=== PATIENT | male | born 1950 | race Hispanic/Latino ===

== ENCOUNTER 2018-03-04 09:32 | Inpatient (IN) | payer OTHER ==
--- NOTE | 2018-03-04 11:48 | PDOC.FPRHP ---
- History of Present Illness Chief Complaint: AMS History of Present Illness: Patient is a 67yo M with PMH of HTN and DM, who presents to us from [facility] for AMS 2/2 hypoglycemia. Initial BS on EMS arrival was 35. Patient also found to be hypertensive with SBP in 200's. 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 On admission, he is AOx3, eating and holding conversation. He reports bilateral shoulder pain that he has had for years, but no CP. He reports he hasn't eaten in 3 days d/t nausea that has been occurring for 6 months. He only eats 1x per day due to this. He also endorses early satiety, bloating, and burning in epigastric area. ED Course: In [place] given octreotide, glucagon, D5W 1/2 NS, po clonidine, IV labetolol 20, cardiene drip No further medications were given in our ED. He was actually taken off of the Cardene drip. - Allergies/Adverse Reactions Allergies Allergy/AdvReac Type Severity Reaction Status Date / Time No Known Allergies Allergy Verified 03/04/18 15:23 - Home Medications Medication Instructions Recorded Confirmed Type Amitriptyline HCl [Elavil] 25 mg PO HS 03/04/18 03/04/18 History Amlodipine [Norvasc] 10 mg PO DAILY 03/04/18 03/04/18 History Atorvastatin Calcium [Lipitor] 40 mg PO DAILY 03/04/18 03/04/18 History Insulin Aspart [NovoLOG FlexPen] 0 unit SC BID-AC 03/04/18 03/04/18 History Insulin NPH Human Isophane 10 unit SC QAM 03/04/18 03/04/18 History [NovoLIN N] Insulin NPH Human Isophane 20 unit SC QPM 03/04/18 03/04/18 History [NovoLIN N] Isoniazid 300 mg PO DAILY 03/04/18 03/04/18 History Lisinopril [Prinivil] 40 mg PO DAILY 03/04/18 03/04/18 History Metoprolol Tartrate [Lopressor] 100 mg PO BID 03/04/18 03/04/18 History Omeprazole 20 mg PO DAILY 03/04/18 03/04/18 History Phenytoin Sodium Extended 100 mg PO HS 03/04/18 03/04/18 History [Dilantin ER] Promethazine HCl 25 mg PO TID 03/04/18 03/04/18 History Rifampin 600 mg PO DAILY 03/04/18 03/04/18 History Venlafaxine HCl [Effexor] 75 mg PO DAILY 03/04/18 03/04/18 History hydrALAZINE HCl [Apresoline] 50 mg PO TID 03/04/18 03/04/18 History - History PMHx: 1. HTN 2. DM2 3. OA 4. Hx of TB per patient, nurse at shelter cannot confirm 5. HLD 6. Diabetic Retinopathy 7. Hypothyroidism PSHx: 1. b/l eye surgery 2. cholecystectomy 3. R knee surgery FHx: Noncontributory Social: Coming from the shelter, is in high security there. Denies tobacco, etoh, and drug use. - Review of Systems General: denies: fever/chills, weight/appetite/sleep changes, night sweats Eyes: denies: eye pain, vision changes ENT: denies: nasal congestion, rhinorrhea Respiratory: reports: other (reports orthopnea). denies: cough, congestion, shortness of breath Cardiovascular: denies: chest pain, palpitation Gastrointestinal: reports: nausea, abdominal pain, other (reports early satiety and bloating). denies: vomiting, diarrhea, constipation Skin: denies: rashes, lesions Musculoskeletal: reports: pain (bilateral shoulder), arthritis/arthralgias. denies: tenderness Neurological: reports: other (tremor worsened from baseline). denies: numbness , syncope Psychological: denies: anxiety, depression - Vital signs 220-240/110-125 until cardine drip started. BP: 149/79 HR: 73 RR: 14 Tmax: 97.9 Pox: 100% on RA Wt: 81.6kg - Physical Exam Constitutional: NAD, awake, alert and oriented, well developed -Constitutional: obese HEENT: normocephalic and atraumatic, EOMI, no scleral icterus, grossly normal hearing Neck: FROM Heart: RRR, normal S1/S2, no murmurs/rubs/gallops, pulses present -Heart: 3+ pitting edema bilateral LE -Lungs: mild rhonchi in the L lung base, occasional inspiratory wheezing, good air movement, no signs of distress Abdomen: soft, bowel sounds present -Abdomen: large scar in RUQ, mild epigastric tenderness Musculoskeletal: normal structure, normal tone Neurological: no focal deficit Skin: no rash/lesions Psychiatric: normal mood and affect, intact recent and remote memory FMR H&P: Results - Labs Result Diagrams: 03/05/18 03:53 03/05/18 03:53 Lab results: WBC: 5.6 HGB 10.0 Crit28.4 MCV 86 Plt 240 NA 138 K 3.7 cl 107 CO2 25 BUN 33 Cr 2.6 glucose 215 Ca 7.6 Albumin 2.0 Bili 0.5 alk phos 98 tot prot 5.3 ALT 17 AST 32 CK: 357 CKMB10 Trop 0.02 BNP 239 Glucose 193, 148 FMR H&P: A/P - Problem List (1) Hypoglycemia Current Visit: Yes Status: Acute Code(s): E16.2 - HYPOGLYCEMIA, UNSPECIFIED (2) Hypertensive urgency Current Visit: Yes Status: Acute Code(s): I16.0 - HYPERTENSIVE URGENCY (3) Diabetes mellitus Current Visit: Yes Status: Acute Code(s): E11.9 - TYPE 2 DIABETES MELLITUS WITHOUT COMPLICATIONS (4) Hypertension Current Visit: Yes Status: Acute Code(s): I10 - ESSENTIAL (PRIMARY) HYPERTENSION (5) Osteoarthritis Current Visit: Yes Status: Acute Code(s): M19.90 - UNSPECIFIED OSTEOARTHRITIS, UNSPECIFIED SITE (6) Hyperlipidemia Current Visit: Yes Status: Acute Code(s): E78.5 - HYPERLIPIDEMIA, UNSPECIFIED (7) SHARON (acute kidney injury) Current Visit: Yes Status: Acute Code(s): N17.9 - ACUTE KIDNEY FAILURE, UNSPECIFIED (8) Elevated brain natriuretic peptide (BNP) level Current Visit: Yes Status: Acute Code(s): R79.89 - OTHER SPECIFIED ABNORMAL FINDINGS OF BLOOD CHEMISTRY (9) Elevated alkaline phosphatase level Current Visit: Yes Status: Acute (10) Hypocalcemia Current Visit: Yes Status: Acute Code(s): E83.51 - HYPOCALCEMIA (11) Hypoalbuminemia due to protein-calorie malnutrition Current Visit: Yes Status: Acute Code(s): E46 - UNSPECIFIED PROTEIN-CALORIE MALNUTRITION (12) Elevated CK Current Visit: Yes Status: Acute (13) Normocytic anemia Current Visit: Yes Status: Acute Code(s): D64.9 - ANEMIA, UNSPECIFIED (14) Hypothyroidism Current Visit: Yes Status: Acute Code(s): E03.9 - HYPOTHYROIDISM, UNSPECIFIED - Plan AMS 2/2 Hypoglycemia, resolved - initially 35, improved to 122 most recently - patient tolerating PO, plan to d/c D51/2 NS - likely cause is lack of PO intake. Patient reports he hasn't eaten in 3 days d/t nausea and abdominal pain Hypertensive Urgency, resolved - likely 2/2 hypoglycemic episode - patient reportedly in 200's systolic, now systolic of 150's - cardene ggt discontinued. plan to resume home medications - continue to monitor and use prn hydralazine Nausea - gastroparesis vs GERD - patient reports bloating and early satiety consistent with gastroparesis and per hx has multiple other secondary problems from uncontrolled DM such as retinopathy and PVD. - will give GI cocktail now and start him on Reglan with meals - Protonix daily - Zofran prn SHARON vs CKD - FeNa studies pending Elevated BNP - significant LE edema on exam and patient endorses orthopnea. 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 Will release back to shelter when stable. FMR H&P: Upper Level - Plan Date/Time: 03/04/18 1145 Nurys Cervantes, have evaluated this patient and agree with findings/plan as outlined by environmental intern resident. Pertinent changes/additions are listed here. 67 yo male with hx of DM, HTN, and HLD and exposure to TB presents after being found down and hypoglycemic to the 30s. He was given glucagon en route and found to be altered in the ER. He was hypertensive at that time and put on a cardine drip before transfer. After transfer her glucose had stabilized and his BP was near normal even after drip stopped. Denied CP. States that he had significant nausea and vomiting for the last 3 days but mild for 6 months. He states he can only eat one meal a day and he feels very bloated. Gen: WD/WN male in no acute distress, eating hungrily. AxO3 HEENT: NC/AT, FABIEN,EOMI, MMM Resp: CTA, normal work of breathing CV: RRR, normal S1, S2, no murmur ABD: mild epigastric pain, patient had large scar above RUQ, Soft nontender, nondistended. No CVA tenderness Extremities: no edema, pulses 2+ Psych: calm, normal affect and mood Neuro: No focal defecits. CN intact, normal strength and sensation Initial glucose 35 1.AMS 2/2 to hypoglycemia- now resolved. Likely related to gastroparesis vs gastroenteritis. Will let him eat and given his home insulin regemin 2.Hypertensive urgency- now resovled, likely 2/2 to the hypoglycemia. Will restart home medications. 3.Gastroparesis- suspected, will order an emptying study to investigate further. Until then will give ppi, reglan, and GI cocktail 4.DM- will check a1c, do accuchecks achs and keep on home medication 5.TB exposure- will continue his isoniazide and order quantafieron gold and CXR. No symptoms 6.HLD- continue statin Attending Addendum - Attending Addendum Date/Time: 03/05/18 0609 I personally evaluated the patient and discussed the management with Dr. Guadalupe I agree with the History, Examination, Assessment and Plan documented above with any addition or exceptions noted below.
[2018-03-04] MEDS ORDERED: Ondansetron HCl/PF 4 MG/2 ML Vial IVP PRN ×2 (12:26→13:30)
[2018-03-04] MEDS ORDERED: Acetaminophen 325 MG TAB PO PRN ×2 (12:26→13:30)
[2018-03-04] MEDS ORDERED: Ondansetron ODT 4 MG TAB SL PRN (12:26)
[2018-03-04] MEDS ORDERED: HumaLOG 300 UNITS/3 ML VIAL SC PRN ×2 (13:30)
[2018-03-04] MEDS ORDERED: Dextrose 5% in Water 1,000 ML IV PRN (13:30)
[2018-03-04] MEDS ORDERED: Docusate 100 MG CAP PO PRN (13:30)
[2018-03-04] MEDS ORDERED: Dextrose 50% Abboject 50 ML SYRINGE SLOW IVP PRN (13:30)
[2018-03-04] MEDS ORDERED: Lidocaine 2% Viscous Solution 10 ML, Aluminum & Magnesium Hydroxide 30 ML SSW SCH (13:45)
[2018-03-04 14:34] LABS: Hemoglobin A1c 5.4 % (4.0-6.0)
[2018-03-04 14:50] LABS: Iron 75 ug/dL (65-175); Iron Binding Capacity, Total 176 mcg/dL (261-462)
[2018-03-04] MEDS ORDERED: hydrALAZINE 25 MG TAB PO SCH (15:00)
[2018-03-04 15:10] LABS: Ferritin 307.39 ng/mL (22-322); Thyroid Stimulating Hormone 1.7503 uIU/mL (0.35-4.94)
[2018-03-04 15:25] VITALS: BMI 32.6
--- NOTE | 2018-03-04 15:38 | RAD ---
TWO VIEWS CHEST: Date: 03-04-18 Provided Clinical History: Possible history of TB. FINDINGS: NO comparisons. Cardiac silhouette is enlarged. There is left basilar consolidation. Associated left pleural effusion . No evidence of pneumothorax. IMPRESSION: 1. Findings suspicious for left basilar pneumonia with associated pleural effusion. 2. Cardiomegaly. POS: DEVONTE
[2018-03-04] MEDS: hydrALAZINE 25 MG TAB PO SCH ×2 (16:00→21:23)
[2018-03-04] MEDS: Metoclopramide 10 MG/10 ML UDCUP PO SCH (16:04)
[2018-03-04 16:26] LABS: Troponin I 0.016 ng/mL (< 0.028)
[2018-03-04] MEDS: Labetalol HCl 100 MG/20 ML VIAL SLOW IVP PRN (17:59)
[2018-03-04 18:51] LABS: Creatinine, Urine 48.09 mg/dL (63-166)
[2018-03-04] MEDS: Amitriptyline HCl 25 MG TAB PO SCH (21:23)
[2018-03-04] MEDS: Metoprolol Tartrate 100 MG TAB PO SCH (21:24)
[2018-03-04] MEDS: NPH, Human Insulin Isophane 300 UNIT/3 ML VIAL SC SCH (21:26)
--- NOTE | 2018-03-04 22:24 | HP ---
DATE OF ADMISSION: 03/04/2018 NOTE: This is an attending history and physical for further specifics, please refer to the internet sales associate's dictated history and physical. CHIEF COMPLAINT: Altered mental status. HISTORY OF PRESENT ILLNESS: A 67-year-old Singaporean speaking only diabetic male, inmate at the [facility] in [place]. He was found to be unresponsive, marked hypoglycemic ep isode with blood sugar in the 30s with an elevated blood pressure. The patient was taken to the [facility]. In review of records reveals he was given glucagon, p.o. clonidine, IV lab etalol and started on a Cardene drip for presumed hypertensive urgency. The patient was initially to be transferred to [place], there were no beds. He was taken to the [facility] in [facility] here he will be admitted for further care and evaluation. PAST MEDICAL HISTORY: Please refer for further details to the internet sales associate's note, he has longstanding hyp ertension and diabetes. Recently, he has had some early satiety consistent with diabetic gastropares is. He states he had not been eating well the last several days. PHYSICAL EXAMINATION: VITAL SIGNS: Blood pressure 149/79, heart rate 73, respirations 14. He is afebrile. GENERAL: Patient is alert, oriented to person, place, and time. HEENT: Atraumatic, normocephalic. Pupils are equal and round. No appreciable papilledema. NECK: Supple. LUNGS: A few scattered rhonchi. HEART: Normal sinus rhythm. ABDOMEN: Soft. Scar of the right upper quadrant. EXTREMITIES: Show no cyanosis, no clubbing, or edema. He is missing his fifth digit of his right mon nd at the [facility]. LABORATORY DATA: Notable for BUN of 33, creatinine 2.6. Brain natriuretic peptide is 239. ASSESSMENT AND PLAN: Altered mental status secondary to hypoglycemia, hypertensive urgency, question able emergency with kidney injury versus chronic kidney disease. 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 He states that he was seen in [place] and is inferring that he has no active disease. Diabetic gastroparesis: He will be start ing on motility agent as Reglan and recommend upper GI with small bowel follow through. The patient has been taken off the Cardene drip and otherwise his home medicines will be restarted as well as ser ial blood sugar monitoring and further evaluation of extent of renal injury.
[2018-03-04] MEDS: hydrALAZINE 20 MG/ML VIAL SLOW IVP PRN (23:53)
[2018-03-05 04:33] LABS: #Eosinphils 0.1 thou/uL (0.0-0.7); #Lymphocytes 0.5 thou/uL (1.20-3.40); #Monocytes 0.5 thou/uL (0.11-0.59); #Neutrophils 2.8 thou/uL (1.40-6.50); %Basophils 0.1 % (0.0-1.0); %Eosinophils 2.1 % (0.0-10.0); %Lymphocytes 12.4 % (21.0-51.0); %Monocytes 12.4 % (0.0-10.0); Hemoglobin 9.1 g/dL (14.0-18.0); Mean Corpuscular Hemoglobin 32.1 pg (27.0-31.0); Mean Corpuscular Volume 89.1 fl (80.0-94.0); Mean Platelet Volume 6.5 fL (7.4-10.4); Platelet Count 241 thou/uL (130-400); Red Blood Cell (RBC) Count 2.83 mill/uL (4.70-6.10); White Blood Cell (WBC) Count 3.8 thou/uL (4.8-10.8)
[2018-03-05 05:06] LABS: ALT (SGPT) 18 U/L (8-55); AST (SGOT) 38 U/L (5-34); Albumin 2.1 g/dL (3.4-4.8); Alkaline Phosphatase 104 U/L (40-150); Anion Gap 10 mmol/L (10-20); BUN (Urea Nitrogen) 35 mg/dL (8.4-25.7); Bilirubin, Total 0.3 mg/dL (0.2-1.2); Calc. Creatinine Clearance 28 mL/min (70-130); Calcium 7.4 mg/dL (7.8-10.44); Carbon Dioxide 24 mmol/L (23-31); Chloride 109 mmol/L (98-107); Estimated GFR-MDRD 19; Globulin 2.6 g/dL (2.4-3.5); Glucose 92 mg/dL (80-115); Protein, Total 4.7 g/dL (5.8-8.1); Sodium 139 mmol/L (136-145)
[2018-03-05 06:46] LABS: Glucose Accucheck Confirmation 101 mg/dl (80-115)
--- NOTE | 2018-03-05 06:53 | PDOC.FM ---
- Subjective Subjective: Pt feels much better. C/o of back pain form OA. Did eat full meal for breakfast. Denies being on TB treatment. - Objective Vital Signs & Weight: Vital Signs (12 hours) Temp Pulse Resp BP BP Pulse Ox 03/05/18 05:15 98.6 F 82 16 168/83 H 92 L 03/05/18 02:16 165/86 H 03/04/18 23:54 98.8 F 84 176/96 H 95 03/04/18 23:53 84 03/04/18 21:23 83 03/04/18 21:00 99.3 F 83 175/90 H 95 03/04/18 20:00 99.3 F 83 20 95 03/04/18 19:00 173/88 H Weight Weight 91.7 kg Result Diagrams: 03/05/18 03:53 03/05/18 03:53 <Ivan Wong - Last Filed: 03/05/18 09:18> - Objective Vital Signs & Weight: Vital Signs (12 hours) Temp Pulse Resp BP BP BP Pulse Ox 03/05/18 11:00 165/95 H 03/05/18 09:06 83 196/96 H 03/05/18 09:05 196/96 H 03/05/18 09:04 83 196/96 H 03/05/18 09:03 83 196/96 H 03/05/18 08:00 97.4 F L 83 20 94 L 03/05/18 07:11 97.4 F L 83 20 196/96 H 94 L 03/05/18 05:15 98.6 F 82 16 168/83 H 92 L 03/05/18 02:16 165/86 H 03/04/18 23:54 98.8 F 84 176/96 H 95 03/04/18 23:53 84 Weight Weight 91.7 kg Result Diagrams: 03/05/18 03:53 03/05/18 03:53 <Allison Arroyo - Last Filed: 03/05/18 11:36> Phys Exam - Physical Examination HEENT: PERRLA, moist MMs Neck: no nodes, no JVD, supple Respiratory: no wheezing, no rales, no rhonchi Cardiovascular: RRR, no significant murmur, no rub Gastrointestinal: soft, non-tender, no distention Musculoskeletal: pulses present, edema present Neurological: non-focal, normal sensation, moves all 4 limbs Psychiatric: normal affect, A&O x 3 Skin: no rash, normal turgor, cap refill <2 seconds <Ivan Wong - Last Filed: 03/05/18 09:18> Dx/Plan (1) SHARON (acute kidney injury) Code(s): N17.9 - ACUTE KIDNEY FAILURE, UNSPECIFIED Status: Acute (2) Diabetes mellitus Code(s): E11.9 - TYPE 2 DIABETES MELLITUS WITHOUT COMPLICATIONS Status: Acute (3) Hypertensive urgency Code(s): I16.0 - HYPERTENSIVE URGENCY Status: Acute (4) Hypoglycemia Code(s): E16.2 - HYPOGLYCEMIA, UNSPECIFIED Status: Acute (5) Normocytic anemia Code(s): D64.9 - ANEMIA, UNSPECIFIED Status: Acute (6) Osteoarthritis Code(s): M19.90 - UNSPECIFIED OSTEOARTHRITIS, UNSPECIFIED SITE Status: Acute - Plan Plan: 1) Hypoglycemia - Resolved, BG in 200's now. 2) Hypertensive Urgency - Off Cardene, BPs elevated still 160's SBP. - Will adjust medications as needed 3) SHARON cs CKD - Cr elevated at 3.1 and GFR decreased. Conitnue IVF and continue to monitor 4) Diabetic Gastroparesis - On Reglan, SBFT pending - Causing Nausea, but Reglan is improving symptoms. 5) Hx/of latent TB - On Rifampin and Isonaizid - Pt states he does not have active disease - Quant gold pending 6) Elevated BNP - ECHO pending 7) Hypocalcemia - Corrects to value WNL. hypoalbuminemia 2/2 chronically poor diet. - Decreased PTH noted. 8) DVT ppx - Lovenox <Ivan Wong - Last Filed: 03/05/18 09:18> Attending Addendum - Attending Addendum Date/Time: 03/05/18 1133 I personally evaluated the patient and discussed the management with Dr. Wong on 03/05/18. I agree with the History, Examination, Assessment and Plan documented above with any addition or exceptions noted below. Patient with normal corrected calcium, but markedly elevated PTH - will check vit D, Mag, phos. Marked hypoalbuminemia without weight loss, will check prealbumin to rule out malnutrition, 24 hour urine to evaluate for nephrotic syndomre (in setting of pitting peripheral edema and CDK stage 4). Evaluate early satiety further with abd US to rule out pancreatic or gallbladder pathology. Quant Blu pending. [facility] further elucidate whether he was treated prior or if he was in the midst of treatment on admission. <Allison Arroyo - Last Filed: 03/05/18 11:36>
[2018-03-05] MEDS ORDERED: Enoxaparin Sodium 40 MG/0.4 ML SYRINGE SC SCH (09:00)
[2018-03-05] MEDS: Metoclopramide 10 MG/10 ML UDCUP PO SCH ×3 (09:02→16:31)
[2018-03-05] MEDS: Atorvastatin Calcium 40 MG TAB PO SCH (09:03)
[2018-03-05] MEDS: Calcium Carbonate 500 MG ChewTAB PO SCH (09:03)
[2018-03-05] MEDS: Amlodipine 10 MG TAB PO SCH (09:03)
[2018-03-05] MEDS: hydrALAZINE 25 MG TAB PO SCH ×3 (09:04→22:14)
[2018-03-05] MEDS: Isoniazid 100 MG TAB PO SCH (09:04)
[2018-03-05] MEDS: Lisinopril 20 MG TAB PO SCH (09:05)
[2018-03-05] MEDS: Metoprolol Tartrate 100 MG TAB PO SCH ×2 (09:05→22:15)
[2018-03-05] MEDS: NPH, Human Insulin Isophane 300 UNIT/3 ML VIAL SC SCH ×2 (09:05→22:15)
[2018-03-05] MEDS: Rifampin 300 MG CAP PO SCH (09:06)
[2018-03-05] MEDS: Venlafaxine HCl 37.5 MG TAB PO SCH (09:06)
[2018-03-05] MEDS: Labetalol HCl 100 MG/20 ML VIAL SLOW IVP PRN (09:06)
[2018-03-05] MEDS: Ondansetron ODT 4 MG TAB PO PRN (12:14)
[2018-03-05 12:23] LABS: Magnesium 1.8 mg/dL (1.6-2.6); Phosphorus 5.4 mg/dL (2.3-4.7)
[2018-03-05 12:50] LABS: HBSAg Index 0.26 S/CO (0-0.99); Hep B Surf Ag Non-Reactive S/CO (NonReactive); Hep C IgG Ab Non-Reactive (NonReactive); Hep C Index 0.11 S/CO (0-0.79)
[2018-03-05 13:43] LABS: HBSAB Concentration 21.97 mIU/mL; Hep B Surf AB Reactive (NonReactive)
[2018-03-05 13:44] LABS: Hep B Core Total Ab Reactive (NonReactive); Hep B Core Total Index 8.79 S/CO (0-0.79)
[2018-03-05] MEDS ORDERED: Acetaminophen 325 MG TAB PO PRN (21:08)
[2018-03-05] MEDS: Amitriptyline HCl 25 MG TAB PO SCH (22:15)
[2018-03-06 06:44] LABS: Hemoglobin 9.1 g/dL (14.0-18.0); Mean Corpuscular HGB CONC 34.7 g/dL (32.0-36.0); Mean Corpuscular Hemoglobin 31.5 pg (27.0-31.0); Mean Corpuscular Volume 90.9 fl (80.0-94.0); Mean Platelet Volume 7.4 fL (7.4-10.4); Platelet Count 210 thou/uL (130-400); RBC Distribution Width 12.9 % (11.5-14.5); Red Blood Cell (RBC) Count 2.88 mill/uL (4.70-6.10); White Blood Cell (WBC) Count 3.4 thou/uL (4.8-10.8)
[2018-03-06 06:56] LABS: Anion Gap 12 mmol/L (10-20); BUN (Urea Nitrogen) 41 mg/dL (8.4-25.7); Calc. Creatinine Clearance 27 mL/min (70-130); Calcium 7.6 mg/dL (7.8-10.44); Carbon Dioxide 19 mmol/L (23-31); Chloride 109 mmol/L (98-107); Estimated GFR-MDRD 18; Glucose 115 mg/dL (80-115); Potassium 4.1 mmol/L (3.5-5.1); Sodium 136 mmol/L (136-145)
--- NOTE | 2018-03-06 08:22 | PDOC.FM ---
- Subjective Subjective: Pt states he suffered with nausea overnight, but was relieved with medication. Collecting urine 24hr. Ate breakfast - Objective Vital Signs & Weight: Vital Signs (12 hours) Temp Pulse Resp BP BP Pulse Ox 03/06/18 07:19 97.8 F 68 18 148/70 H 94 L 03/06/18 04:51 97.9 F 69 20 109/68 93 L 03/06/18 00:05 97.7 F 60 20 109/68 93 L 03/05/18 22:14 76 03/05/18 20:31 98.4 F 76 20 104/64 97 Weight Weight 91.7 kg Result Diagrams: 03/06/18 05:29 03/06/18 05:29 Additional Labs: Laboratory Tests 03/05/18 03/05/18 03/05/18 11:51 11:51 11:51 Creatinine Calcium Phosphorus 5.4 H Magnesium 1.8 Prealbumin 17.0 25-OH Vitamin D Total Hep Bs Antigen Non-Reactive Hep Bs Antibody Reactive Hep B Core Total Ab Reactive H Hepatitis C Antibody Non-Reactive 03/05/18 03/06/18 11:51 05:29 Creatinine 3.35 H Calcium 7.6 L Phosphorus Magnesium Prealbumin 25-OH Vitamin D Total Less than 3.4 L Hep Bs Antigen Hep Bs Antibody Hep B Core Total Ab Hepatitis C Antibody <Ivan Wong - Last Filed: 03/06/18 08:31> - Objective Vital Signs & Weight: Vital Signs (12 hours) Temp Pulse Resp BP BP Pulse Ox 03/07/18 04:00 97.7 F 66 20 148/78 H 92 L 03/07/18 00:00 97.4 F L 63 18 150/85 H 92 L 03/06/18 21:36 69 163/84 H 03/06/18 20:00 97.5 F L 69 18 163/84 H 96 Weight Weight 91.7 kg I&O: 03/06/18 03/07/18 03/08/18 06:59 06:59 06:59 Intake Total 1520 Output Total 400 Balance 1120 Result Diagrams: 03/07/18 05:34 03/07/18 05:34 <Allison Arroyo - Last Filed: 03/07/18 07:26> Phys Exam - Physical Examination Constitutional: NAD HEENT: PERRLA, moist MMs, sclera anicteric, oral pharynx no lesions Neck: no nodes, no JVD Respiratory: no wheezing, no rales, no rhonchi Cardiovascular: RRR, no significant murmur, no rub Gastrointestinal: soft, non-tender, no distention Musculoskeletal: pulses present, edema present 1+ pitting LE Neurological: non-focal, normal sensation Psychiatric: normal affect, A&O x 3 Skin: no rash, normal turgor <Ivan Wong - Last Filed: 03/06/18 08:31> Dx/Plan (1) SHARON (acute kidney injury) Code(s): N17.9 - ACUTE KIDNEY FAILURE, UNSPECIFIED Status: Acute (2) Diabetes mellitus Code(s): E11.9 - TYPE 2 DIABETES MELLITUS WITHOUT COMPLICATIONS Status: Acute (3) Hypertensive urgency Code(s): I16.0 - HYPERTENSIVE URGENCY Status: Acute (4) Hypoglycemia Code(s): E16.2 - HYPOGLYCEMIA, UNSPECIFIED Status: Acute (5) Normocytic anemia Code(s): D64.9 - ANEMIA, UNSPECIFIED Status: Acute (6) Osteoarthritis Code(s): M19.90 - UNSPECIFIED OSTEOARTHRITIS, UNSPECIFIED SITE Status: Acute - Plan Plan: 1) Hypoglycemia - Resolved, BG controlled. 2) Hypertensive Urgency - BP's much more controlled on home medications. max 148/70 - Will adjust medications as needed 3) SHARON cs CKD - Cr elevated at 3.1-->3.35 and GFR decreased. - 24hr UPro pending. Hypoalbuminemia suggestive of renal loss. 4) Hx/o Gastroparesis - On Reglan, Abdominal US taken/read pending - Continued Nausea, but Reglan is improving symptoms. 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 - Decreased PTH noted with low Vitamid D level. Will supplement/ 8) Hyperphosphatemia - [place] 2/2 renal function. Continue to monitor 9) DVT ppx - Lovenox <Ivan Wong - Last Filed: 03/06/18 08:31> Attending Addendum - Attending Addendum I personally evaluated the patient and discussed the management with Dr. Wong on 03/06/18. I agree with the History, Examination, Assessment and Plan documented above with any addition or exceptions noted below. Abd US results pending. Elevated PTH likely caused by severe vit D deficiency, will replete. Renal function not improved, continue 24 hr urine workup for nephrotic syndrome and consult nephrology. BPs improved. <Allison Arroyo - Last Filed: 03/07/18 07:26>
[2018-03-06] MEDS: Metoclopramide 10 MG/10 ML UDCUP PO SCH ×3 (08:54→15:55)
[2018-03-06] MEDS: Calcium Carbonate 500 MG ChewTAB PO SCH (08:55)
[2018-03-06] MEDS: Amlodipine 10 MG TAB PO SCH (08:55)
[2018-03-06] MEDS: Atorvastatin Calcium 40 MG TAB PO SCH (08:55)
[2018-03-06] MEDS: Enoxaparin Sodium 30 MG/0.3 ML SYRINGE SC SCH (08:56)
[2018-03-06] MEDS: Lisinopril 20 MG TAB PO SCH (08:56)
[2018-03-06] MEDS: hydrALAZINE 25 MG TAB PO SCH ×3 (08:56→21:36)
[2018-03-06] MEDS: Isoniazid 100 MG TAB PO SCH (08:56)
[2018-03-06] MEDS: NPH, Human Insulin Isophane 300 UNIT/3 ML VIAL SC SCH ×2 (08:57→21:38)
[2018-03-06] MEDS: Metoprolol Tartrate 100 MG TAB PO SCH ×2 (08:57→21:36)
[2018-03-06] MEDS: Rifampin 300 MG CAP PO SCH (08:58)
[2018-03-06] MEDS: Venlafaxine HCl 37.5 MG TAB PO SCH (08:58)
--- NOTE | 2018-03-06 09:11 | ULT ---
ABDOMEN ULTRASOUND COMPLETE: Date: 03/06/18 HISTORY: 67-year-old male with possible gastroparesis. Status post cholecystectomy. Patient gives a history of hypoglycemia and altered mental status. FINDINGS: Bilateral pleural effusions. No ductal dilatation. No focal liver masses. The visualized pancreas, IV C, aorta, and spleen are unremarkable. No evidence for renal hydronephrosis. IMPRESSION: Status post cholecystectomy. Bilateral pleural effusions. No ductal dilatation. Otherwise unremarkabl e abdominal ultrasound. POS: STEPHANIE
[2018-03-06] MEDS ORDERED: Cholecalciferol (Vitamin D3) 400 UNIT/ML DROPS PO SCH (09:15)
[2018-03-06 09:34] LABS: Band 6 % (5-11); Lymphocytes 31 % (21-51); MDiff Complete? YES; Monocytes 10 % (0-10); Neutrophil 53 % (42-75); RBC Morphology Normal
[2018-03-06] MEDS: Cholecalciferol (Vitamin D3) 400 UNITS TAB PO SCH ×2 (09:56→21:37)
[2018-03-06 16:16] LABS: Folate,Hemolysate 363.3 ng/mL (Not Estab.); Hematocrit 26.2 % (37.5-51.0); RBC Folate Test Component 1387 ng/mL (>498)
[2018-03-06] MEDS: Amitriptyline HCl 25 MG TAB PO SCH (21:36)
[2018-03-06 22:25] LABS: Collection Duration 24 hrs; Urine Total Volume 1150 mL (250-2400)
[2018-03-07 00:26] LABS: Protein - 24 Hr 10063 mg/24 hr (Less than 300); Protein, Urine 875 mg/dL (1-14)
[2018-03-07 06:01] LABS: #Eosinphils 0.1 thou/uL (0.0-0.7); #Lymphocytes 0.6 thou/uL (1.20-3.40); #Monocytes 0.3 thou/uL (0.11-0.59); #Neutrophils 2.8 thou/uL (1.40-6.50); %Basophils 0.1 % (0.0-1.0); %Eosinophils 2.4 % (0.0-10.0); %Lymphocytes 14.5 % (21.0-51.0); %Monocytes 8.2 % (0.0-10.0); %Neutrophils 74.8 % (42.0-75.0); Hemoglobin 8.8 g/dL (14.0-18.0); Mean Corpuscular HGB CONC 33.6 g/dL (32.0-36.0); Mean Corpuscular Hemoglobin 30.5 pg (27.0-31.0); Mean Corpuscular Volume 90.9 fl (80.0-94.0); Mean Platelet Volume 6.6 fL (7.4-10.4); Platelet Count 224 thou/uL (130-400); RBC Distribution Width 12.8 % (11.5-14.5); Red Blood Cell (RBC) Count 2.88 mill/uL (4.70-6.10); White Blood Cell (WBC) Count 3.8 thou/uL (4.8-10.8)
[2018-03-07 06:20] LABS: Anion Gap 11 mmol/L (10-20); BUN (Urea Nitrogen) 37 mg/dL (8.4-25.7); Calc. Creatinine Clearance 27 mL/min (70-130); Calcium 7.3 mg/dL (7.8-10.44); Carbon Dioxide 23 mmol/L (23-31); Chloride 106 mmol/L (98-107); Estimated GFR-MDRD 19; Glucose 137 mg/dL (80-115); Potassium 4.1 mmol/L (3.5-5.1); Sodium 136 mmol/L (136-145)
[2018-03-07] MEDS ORDERED: NPH, Human Insulin Isophane 300 UNIT/3 ML VIAL SC SCH (08:03)
[2018-03-07] MEDS: hydrALAZINE 25 MG TAB PO SCH ×3 (08:07→20:13)
[2018-03-07] MEDS: Atorvastatin Calcium 40 MG TAB PO SCH (08:08)
[2018-03-07] MEDS: Cholecalciferol (Vitamin D3) 400 UNITS TAB PO SCH ×2 (08:08→20:12)
[2018-03-07] MEDS: Lisinopril 20 MG TAB PO SCH (08:08)
[2018-03-07] MEDS: Venlafaxine HCl 37.5 MG TAB PO SCH (08:08)
[2018-03-07] MEDS: Rifampin 300 MG CAP PO SCH (08:08)
[2018-03-07] MEDS: Isoniazid 100 MG TAB PO SCH (08:08)
[2018-03-07] MEDS: Amlodipine 10 MG TAB PO SCH (08:08)
--- NOTE | 2018-03-07 08:08 | PDOC.FM ---
- Subjective Subjective: Pt reports minimal nausea. Did have hypoglycemia overnight at 52 then 25. resolved with D50. Feels fine now. Urinating normally. Noted nephrotic after Uprotein. - Objective Vital Signs & Weight: Vital Signs (12 hours) Temp Pulse Resp BP BP Pulse Ox 03/07/18 04:00 97.7 F 66 20 148/78 H 92 L 03/07/18 00:00 97.4 F L 63 18 150/85 H 92 L 03/06/18 21:36 69 163/84 H Weight Weight 91.7 kg I&O: 03/06/18 03/07/18 03/08/18 06:59 06:59 06:59 Intake Total 1520 Output Total 400 Balance 1120 Result Diagrams: 03/07/18 05:34 03/07/18 05:34 <Ivan Wong - Last Filed: 03/07/18 08:06> - Objective Vital Signs & Weight: Vital Signs (12 hours) Temp Pulse Resp BP BP Pulse Ox 03/07/18 08:08 66 163/84 H 03/07/18 08:07 66 03/07/18 04:00 97.7 F 66 20 148/78 H 92 L 03/07/18 00:00 97.4 F L 63 18 150/85 H 92 L Weight Weight 91.7 kg I&O: 03/06/18 03/07/18 03/08/18 06:59 06:59 06:59 Intake Total 1520 360 Output Total 400 Balance 1120 360 Result Diagrams: 03/07/18 05:34 03/07/18 05:34 <Allison Arroyo - Last Filed: 03/07/18 10:20> Phys Exam - Physical Examination Constitutional: NAD HEENT: PERRLA, moist MMs, sclera anicteric Neck: no nodes, no JVD, supple Respiratory: no wheezing, no rales, no rhonchi Cardiovascular: RRR, no significant murmur, no rub Gastrointestinal: soft, non-tender, no distention Musculoskeletal: no edema, pulses present, edema present 1+ pitting b/l Neurological: non-focal, normal sensation Psychiatric: normal affect, A&O x 3 Skin: no rash, normal turgor <Ivan Wong - Last Filed: 03/07/18 08:06> Dx/Plan (1) SHARON (acute kidney injury) Code(s): N17.9 - ACUTE KIDNEY FAILURE, UNSPECIFIED Status: Acute (2) Diabetes mellitus Code(s): E11.9 - TYPE 2 DIABETES MELLITUS WITHOUT COMPLICATIONS Status: Acute (3) Hypertensive urgency Code(s): I16.0 - HYPERTENSIVE URGENCY Status: Acute (4) Hypoglycemia Code(s): E16.2 - HYPOGLYCEMIA, UNSPECIFIED Status: Acute (5) Normocytic anemia Code(s): D64.9 - ANEMIA, UNSPECIFIED Status: Acute (6) Osteoarthritis Code(s): M19.90 - UNSPECIFIED OSTEOARTHRITIS, UNSPECIFIED SITE Status: Acute (7) Nephrotic syndrome Code(s): N04.9 - NEPHROTIC SYNDROME WITH UNSPECIFIED MORPHOLOGIC CHANGES Status: Acute - Plan Plan: 1) Hypoglycemia - 2 episodes overnight. Decreased night NPH from 20 to 10. Continue to monitor. 2) Hypertensive Urgency - BP's much more controlled on home medications now. - Will adjust medications as needed 3) SHARON cs CKD - Cr elevated at 3.1-->3.35--?3.28 and GFR decreased. Not improving - 24hr UPro pending shows elevated protein. Hypoalbuminemia suggestive of renal loss. - I have attempted to obtain medical records from [facility], but have been unsuccessful 4) Nephrotic Syndrome - Will consult nephrology and follow recs - 24 hr Upro shows elevated protein 5) Hx/o Gastroparesis - On Reglan, Abdominal US taken/read pending - Continued Nausea, but Reglan is improving symptoms. 6) Hx/of latent TB - On Rifampin and Isonaizid treatment currently and has been for several months - Pt states he does not have active disease - Quant gold pending 7) Elevated BNP - ECHO shows mild TR and mild pericardial effusion. He does have a pos fluid balance 2/2 hypoalbuminemia 8) Vitamin D deficiency - Ca level corrects to value WNL. - Supplementing Vitamid D level daily 9) Hyperphosphatemia - [place] 2/2 renal function. Continue to monitor 10) DVT ppx - Lovenox <Ivan Wong - Last Filed: 03/07/18 08:06> Attending Addendum - Attending Addendum Date/Time: 03/07/18 1018 I personally evaluated the patient and discussed the management with Dr. Wong on 03/07/18. I agree with the History, Examination, Assessment and Plan documented above with any addition or exceptions noted below. Patient with nephrotic syndrome of unknown cause and duration. Seen with Dr. Polanco at bedside. Has bilateral peripheral edema with bilateral pleural effusions and pericardial effusion likely related to decreased oncotic pressures from hypoalbuminemia. Confirmatory tests for Hep C and Hep B ordered. Will check HIV. Attempted to get information from [facility], has not been faxed in yet. Will attempt to diurese patient per Dr. Polanco as well as expand workup per his recommendations. May consider transfer to [facility] if possible. <Allison Arroyo - Last Filed: 03/07/18 10:20>
[2018-03-07] MEDS: Metoclopramide 10 MG/10 ML UDCUP PO SCH ×3 (08:09→17:07)
[2018-03-07] MEDS: Calcium Carbonate 500 MG ChewTAB PO SCH (08:09)
[2018-03-07] MEDS: Enoxaparin Sodium 30 MG/0.3 ML SYRINGE SC SCH (08:09)
[2018-03-07] MEDS: Metoprolol Tartrate 100 MG TAB PO SCH ×2 (08:31→20:13)
[2018-03-07] MEDS ORDERED: Furosemide 40 MG/4 ML VIAL SLOW IVP SCH (17:00)
[2018-03-07] MEDS ORDERED: Epoetin (ESRD) 20,000 UNITS/ML SC SCH (18:30)
[2018-03-07] MEDS: Amitriptyline HCl 25 MG TAB PO SCH (20:12)
--- NOTE | 2018-03-08 02:17 | CON ---
DATE OF CONSULTATION: 03/07/2018 CONSULTING PHYSICIAN: Collin Faust M.D. REQUESTING PHYSICIAN: Dr. Desai with [facility]. REASON FOR CONSULTATION: Advanced chronic kidney disease with nephrotic range proteinuria. IMPRESSION: 1. Nephrotic syndrome. This is likely in the context of diabetic nephropathy. However, other poten tial etiologies include hepatitis C-induced nephropathy in the context of cryoglobulin nephropathy. 2. Anemia, likely anemia of chronic kidney disease. 3. Hypertensive urgency, improved status post treatment with medications. PLAN: 1. The patient to require some diuresis with very close attention to the renal function. If the cre atinine begins to rise exponentially, we will recommend holding angiotensin converting enzyme inhibit or as patient undergoes diuresis. 2. Renally dose all medications per low GFR. 3. Erythropoiesis stimulating agent to address the anemia of chronic kidney disease. 4. Further management to be dependent on the clinical course. There is no indication at this point for renal replacement therapy. HISTORY OF PRESENT ILLNESS: That of a 67-year-old gentleman who was brought in with altered mental s tatus. The patient is an inmate at [facility] [employer] in [place]. Mental statu s change believed more or less due to hypoglycemia. However, on presentation, the patient noted to b e severely hypertensive as well as evidence of a decreased renal function with renal function being a t the level of CKD stage 4. Further evaluation did reveal 15 grams of protein in 24 hours with low a lbumin, as well as peripheral edema, raising the specter of possible nephrotic syndrome. As a result of these findings, decision has been taken to involve Renal in the management of this case. PAST MEDICAL HISTORY: Significant for diabetes, hypertension, chronic kidney disease, and hepatitis C. MEDICATIONS: Reviewed and as documented on [employer]. ALLERGIES: No known drug allergy. FAMILY HISTORY: No family history of kidney disease. SOCIAL HISTORY: The patient is incarcerated. REVIEW OF SYSTEMS: As documented in the body of the history. All the other systems were reviewed an d found not to be significantly related to presenting illness. PHYSICAL EXAMINATION: GENERAL: The patient was found not to be in any obvious distress noted with the following vital sign s. VITAL SIGNS: Afebrile, temperature 97.4, pulse 56, blood pressure 132/84, respiratory rate 16, O2 sa t 97%. HEENT: Unremarkable. Moist oral mucosa. Neck was supple, no conjunctival injection or icterus. CARDIOVASCULAR SYSTEM: First and second heart sounds were heard. RESPIRATORY SYSTEM: Clear to auscultation. DIGESTIVE SYSTEM: Revealed a benign abdomen with positive bowel sounds. EXTREMITIES: Showed some peripheral edema. NEUROLOGIC: Alert, oriented. No lateralizing signs. LYMPHATICS: No peripheral lymphadenopathy. SUMMARY: A 67-year-old gentleman with advanced chronic kidney disease in the context of nephrotic sy ndrome, possibly diabetic nephropathy. Thank you for this consultation. We will follow with you.
[2018-03-08] MEDS: hydrALAZINE 20 MG/ML VIAL SLOW IVP PRN ×2 (04:27→16:58)
[2018-03-08 04:33] LABS: #Eosinphils 0.2 thou/uL (0.0-0.7); #Lymphocytes 0.6 thou/uL (1.20-3.40); #Monocytes 0.5 thou/uL (0.11-0.59); #Neutrophils 1.9 thou/uL (1.40-6.50); %Basophils 0.5 % (0.0-1.0); %Eosinophils 5.4 % (0.0-10.0); %Lymphocytes 19.6 % (21.0-51.0); %Monocytes 14.7 % (0.0-10.0); %Neutrophils 59.9 % (42.0-75.0); Hemoglobin 9.4 g/dL (14.0-18.0); Mean Corpuscular HGB CONC 34.1 g/dL (32.0-36.0); Mean Corpuscular Hemoglobin 30.7 pg (27.0-31.0); Mean Platelet Volume 6.6 fL (7.4-10.4); Platelet Count 228 thou/uL (130-400); RBC Distribution Width 12.5 % (11.5-14.5); Red Blood Cell (RBC) Count 3.04 mill/uL (4.70-6.10); White Blood Cell (WBC) Count 3.2 thou/uL (4.8-10.8)
[2018-03-08 05:02] LABS: Anion Gap 9 mmol/L (10-20); BUN (Urea Nitrogen) 37 mg/dL (8.4-25.7); Calc. Creatinine Clearance 28 mL/min (70-130); Calcium 7.4 mg/dL (7.8-10.44); Carbon Dioxide 25 mmol/L (23-31); Chloride 107 mmol/L (98-107); Estimated GFR-MDRD 19; Glucose 155 mg/dL (80-115); Potassium 3.9 mmol/L (3.5-5.1); Sodium 137 mmol/L (136-145)
[2018-03-08] MEDS: Furosemide 40 MG/4 ML VIAL SLOW IVP SCH ×2 (06:06→14:44)
--- NOTE | 2018-03-08 06:49 | PDOC.FM ---
- Subjective Subjective: Records received from [facility]. Does have some CKD and worsening renal function in the past 3 months. was 1.81 in Dec, 2.23 in January, and 2.43 in early February. Denies complaints today. - Objective Vital Signs & Weight: Vital Signs (12 hours) Temp Pulse Resp BP BP BP Pulse Ox 03/08/18 05:50 177/82 H 03/08/18 04:27 72 03/08/18 04:00 97.3 F L 72 18 194/102 H 94 L 03/07/18 20:15 97.5 F L 75 16 93 L 03/07/18 20:13 75 158/80 H 03/07/18 19:00 97.5 F L 75 16 158/80 H 93 L Weight Weight 91.7 kg I&O: 03/06/18 03/07/18 03/08/18 06:59 06:59 06:59 Intake Total 1520 1260 Output Total 400 850 Balance 1120 410 Result Diagrams: 03/08/18 04:15 03/08/18 04:15 <Ivan Wong - Last Filed: 03/08/18 09:13> - Objective Vital Signs & Weight: Vital Signs (12 hours) Temp Pulse Resp BP BP BP Pulse Ox 03/08/18 08:19 76 177/87 H 03/08/18 08:18 177/87 H 03/08/18 07:54 97.7 F 76 18 177/87 H 93 L 03/08/18 05:50 177/82 H 03/08/18 04:27 72 03/08/18 04:00 97.3 F L 72 18 194/102 H 94 L Weight Weight 91.7 kg I&O: 03/07/18 03/08/18 03/09/18 06:59 06:59 06:59 Intake Total 1520 1260 Output Total 400 850 Balance 1120 410 Result Diagrams: 03/08/18 04:15 03/08/18 04:15 <Allison Arroyo - Last Filed: 03/08/18 10:31> Phys Exam - Physical Examination HEENT: PERRLA, moist MMs, sclera anicteric Neck: no nodes mild JVD Respiratory: no rales Cardiovascular: RRR, no significant murmur, no rub Gastrointestinal: soft, non-tender, no distention Musculoskeletal: pulses present, edema present 1+ b/l Neurological: non-focal Psychiatric: normal affect, A&O x 3 Skin: no rash, normal turgor, cap refill <2 seconds <Ivan Wong - Last Filed: 03/08/18 09:13> Dx/Plan (1) SHARON (acute kidney injury) Code(s): N17.9 - ACUTE KIDNEY FAILURE, UNSPECIFIED Status: Acute (2) Diabetes mellitus Code(s): E11.9 - TYPE 2 DIABETES MELLITUS WITHOUT COMPLICATIONS Status: Acute (3) Hypertensive urgency Code(s): I16.0 - HYPERTENSIVE URGENCY Status: Acute (4) Hypoglycemia Code(s): E16.2 - HYPOGLYCEMIA, UNSPECIFIED Status: Acute (5) Normocytic anemia Code(s): D64.9 - ANEMIA, UNSPECIFIED Status: Acute (6) Osteoarthritis Code(s): M19.90 - UNSPECIFIED OSTEOARTHRITIS, UNSPECIFIED SITE Status: Acute (7) Nephrotic syndrome Code(s): N04.9 - NEPHROTIC SYNDROME WITH UNSPECIFIED MORPHOLOGIC CHANGES Status: Acute (8) Chronic kidney disease Code(s): N18.9 - CHRONIC KIDNEY DISEASE, UNSPECIFIED Status: Chronic - Plan Plan: 1) Hypoglycemia - resolved. Decreased night NPH from 20 to 10 on 03/07. Continue to monitor. 2) Hypertensive Urgency - BP's much more controlled on home medications now. - Will adjust medications as needed 3) SHARON cs CKD - Cr elevated at 3.1-->3.35--3.24 and GFR decreased. Records show worsening renal function from Cr 1.8 in December. - 24hr UPro pending shows elevated protein. Hypoalbuminemia suggestive of renal loss. - Records reviewed from [facility]. - Discussed case with Dr Polanco 4) Nephrotic Syndrome - Continue diuresis. - 24 hr Upro shows elevated protein #) Tuberculosis - On rifampin and Isoniazed several months - Continue treatment & precautions. 5) Hx/o Gastroparesis - On Reglan, Abdominal US taken/read pending - Continued Nausea, but Reglan is improving symptoms. 6) Hx/of latent TB - On Rifampin and Isonaizid treatment currently and has been for several months - Pt states he does not have active disease - Quant gold pending 7) Elevated BNP - ECHO shows mild TR and mild pericardial effusion. He does have a pos fluid balance 2/2 hypoalbuminemia 8) Vitamin D deficiency - Ca level corrects to value WNL. - Supplementing Vitamid D level daily 9) Hyperphosphatemia - [place] 2/2 renal function. Continue to monitor 10) DVT ppx - Lovenox <Ivan Wong - Last Filed: 03/08/18 09:13> Attending Addendum - Attending Addendum Date/Time: 03/08/18 1028 I personally evaluated the patient and discussed the management with Dr. Wong on 03/08/18. I agree with the History, Examination, Assessment and Plan documented above with any addition or exceptions noted below. Patient with nephrotic syndrome. Responded well to diuresis, peripheral edema improved today. States he feels much better. GFR stable, approx 1500 out yesterday. Continue diuresis, waiting on labs to investigate underlying cause of nephrotic syndrome (Hep B vs Hep C vs DM). Records from [facility] show CR 1.2 in December and gradually worsening since then, with no obvious workup. Will discuss with Dr. Polanco to determine next steps and timeline for discharge. Also, patient's Quant Gold positive, confirming that he arrived from [facility] with TB. Continue treatment as is for now along with precautions. <Allison Arroyo - Last Filed: 03/08/18 10:31>
[2018-03-08] MEDS: Isoniazid 100 MG TAB PO SCH (08:17)
[2018-03-08] MEDS: Venlafaxine HCl 37.5 MG TAB PO SCH (08:18)
[2018-03-08] MEDS: Calcium Carbonate 500 MG ChewTAB PO SCH ×2 (08:18→16:59)
[2018-03-08] MEDS: Lisinopril 20 MG TAB PO SCH (08:18)
[2018-03-08] MEDS: Cholecalciferol (Vitamin D3) 400 UNITS TAB PO SCH ×2 (08:18→20:11)
[2018-03-08] MEDS: Amlodipine 10 MG TAB PO SCH (08:19)
[2018-03-08] MEDS: hydrALAZINE 25 MG TAB PO SCH ×3 (08:19→20:11)
[2018-03-08] MEDS: Atorvastatin Calcium 40 MG TAB PO SCH (08:19)
[2018-03-08] MEDS: Enoxaparin Sodium 30 MG/0.3 ML SYRINGE SC SCH (08:20)
[2018-03-08] MEDS: Metoclopramide 10 MG/10 ML UDCUP PO SCH ×3 (08:20→16:59)
[2018-03-08] MEDS: Rifampin 300 MG CAP PO SCH (08:23)
[2018-03-08] MEDS: Metoprolol Tartrate 100 MG TAB PO SCH ×2 (08:23→20:11)
[2018-03-08 16:15] LABS: HBV as IU/mL HBV DNA not detected IU/mL (.)
[2018-03-08] MEDS ORDERED: Calcium Carbonate 500 MG ChewTAB PO PRN (16:30)
[2018-03-08] MEDS: Amitriptyline HCl 25 MG TAB PO SCH (20:11)
--- NOTE | 2018-03-09 01:26 | PRG ---
DATE OF SERVICE: 03/08/2018 SUBJECTIVE: The patient was seen and examined with no new complaint, noted with the following vital signs. OBJECTIVE: VITAL SIGNS: Afebrile with temperature 97.3, pulse 72, respiratory rate of 18, blood pressure 194/10 2, O2 sat of 94%. HEENT: Unremarkable. Moist oral mucosa. No conjunctival injection or icterus. NECK: Supple. CARDIOVASCULAR: First and second heart sounds were heard. RESPIRATORY: Clear to auscultation. DIGESTIVE: Revealed a benign abdomen with positive bowel sounds. EXTREMITIES: No peripheral edema except minimal lower extremity edema. LYMPHATICS: No peripheral lymphadenopathy. LABORATORY INVESTIGATIONS: Showed a hemoglobin of 9.4. Chemistry showed a BUN of 37 with a creatini ne of 3.24. IMPRESSION: 1. Advanced chronic kidney disease in the context of possible diabetic nephropathy resulting in neph rotic syndrome. 2. Anemia of chronic kidney disease. PLAN: 1. We will continue current renal supportive measures. 2. We will be deescalating diuretics. 3. Further management to be dependent on the clinical course.
[2018-03-09 04:48] LABS: #Eosinphils 0.1 thou/uL (0.0-0.7); #Monocytes 0.4 thou/uL (0.11-0.59); #Neutrophils 1.7 thou/uL (1.40-6.50); %Basophils 0.8 % (0.0-1.0); %Eosinophils 3.9 % (0.0-10.0); %Monocytes 12.1 % (0.0-10.0); %Neutrophils 53.2 % (42.0-75.0); Hemoglobin 9.6 g/dL (14.0-18.0); Mean Corpuscular HGB CONC 33.7 g/dL (32.0-36.0); Mean Corpuscular Hemoglobin 30.4 pg (27.0-31.0); Mean Platelet Volume 6.7 fL (7.4-10.4); Platelet Count 249 thou/uL (130-400); RBC Distribution Width 12.8 % (11.5-14.5); Red Blood Cell (RBC) Count 3.16 mill/uL (4.70-6.10); White Blood Cell (WBC) Count 3.2 thou/uL (4.8-10.8)
[2018-03-09 04:56] LABS: Anion Gap 10 mmol/L (10-20); BUN (Urea Nitrogen) 31 mg/dL (8.4-25.7); Calc. Creatinine Clearance 29 mL/min (70-130); Calcium 7.6 mg/dL (7.8-10.44); Carbon Dioxide 26 mmol/L (23-31); Chloride 104 mmol/L (98-107); Estimated GFR-MDRD 20; Glucose 135 mg/dL (80-115); Sodium 136 mmol/L (136-145)
[2018-03-09] MEDS: Furosemide 40 MG/4 ML VIAL SLOW IVP SCH ×2 (05:48→12:33)
--- NOTE | 2018-03-09 07:01 | PDOC.FM ---
- Subjective Subjective: Pt denies complaints. Improved LE edema. Diuresing well on IV lasix. Tolerating PO and having BMs/voiding. History of treated HepB and HEpC. - Objective Vital Signs & Weight: Vital Signs (12 hours) Temp Pulse Resp BP Pulse Ox 03/09/18 04:00 98.5 F 74 18 172/82 H 92 L 03/09/18 00:44 97.8 F 68 17 169/80 H 94 L 03/08/18 22:00 158/76 H 03/08/18 20:11 82 03/08/18 20:10 97.9 F 82 18 94 L 03/08/18 19:53 97.9 F 82 18 177/92 H 93 L Weight Weight 91.7 kg I&O: 03/08/18 03/09/18 03/10/18 06:59 06:59 06:59 Intake Total 1260 470 Output Total 850 750 Balance 410 -280 Result Diagrams: 03/09/18 04:00 03/09/18 04:00 <Ivan Wong - Last Filed: 03/09/18 08:38> - Objective Vital Signs & Weight: Vital Signs (12 hours) Temp Pulse Resp BP BP BP Pulse Ox 03/09/18 09:01 195/84 H 03/09/18 08:56 78 195/84 H 03/09/18 08:55 78 195/84 H 03/09/18 07:49 98.3 F 78 16 195/84 H 92 L 03/09/18 04:00 98.5 F 74 18 172/82 H 92 L 03/09/18 00:44 97.8 F 68 17 169/80 H 94 L Weight Weight 91.7 kg I&O: 03/08/18 03/09/18 03/10/18 06:59 06:59 06:59 Intake Total 1260 470 Output Total 850 750 Balance 410 -280 Result Diagrams: 03/09/18 04:00 03/09/18 04:00 <Allison Arroyo - Last Filed: 03/09/18 10:43> Phys Exam - Physical Examination HEENT: PERRLA, moist MMs, sclera anicteric Neck: no nodes, no JVD, supple Respiratory: no rales, no rhonchi Cardiovascular: RRR, no significant murmur, no rub Gastrointestinal: soft, non-tender, no distention Musculoskeletal: no edema, pulses present Neurological: non-focal, normal sensation Psychiatric: normal affect, A&O x 3 <MarvinIvan - Last Filed: 03/09/18 08:38> Dx/Plan (1) SHARON (acute kidney injury) Code(s): N17.9 - ACUTE KIDNEY FAILURE, UNSPECIFIED Status: Acute (2) Diabetes mellitus Code(s): E11.9 - TYPE 2 DIABETES MELLITUS WITHOUT COMPLICATIONS Status: Acute (3) Hypertensive urgency Code(s): I16.0 - HYPERTENSIVE URGENCY Status: Acute (4) Hypoglycemia Code(s): E16.2 - HYPOGLYCEMIA, UNSPECIFIED Status: Acute (5) Normocytic anemia Code(s): D64.9 - ANEMIA, UNSPECIFIED Status: Acute (6) Osteoarthritis Code(s): M19.90 - UNSPECIFIED OSTEOARTHRITIS, UNSPECIFIED SITE Status: Acute (7) Nephrotic syndrome Code(s): N04.9 - NEPHROTIC SYNDROME WITH UNSPECIFIED MORPHOLOGIC CHANGES Status: Acute (8) Chronic kidney disease Code(s): N18.9 - CHRONIC KIDNEY DISEASE, UNSPECIFIED Status: Chronic - Plan Plan: 1) Hypoglycemia - resolved. Decreased night NPH from 20 to 10 on 03/07. Continue to monitor. 2) Hypertensive Urgency - BP's much more controlled on home medications now. Elevated overnight on multiple medications. - Will adjust medications as needed 3) SHARON cs CKD - Cr elevated at 3.1-->3.35--3.24 and GFR decreased. Records show worsening renal function from Cr 1.8 in December. - 24hr UPro pending shows elevated protein. Hypoalbuminemia suggestive of renal loss. - Records reviewed from [facility]. - Discussed case with Dr Polanco 4) Nephrotic Syndrome - Continue diuresis. - 24 hr Upro shows elevated protein 5) Tuberculosis - On rifampin and Isoniazed several months - Continue treatment & precautions. 6) Hx/o Gastroparesis - On Reglan, Abdominal US taken/read pending - Continued Nausea, but Reglan is improving symptoms. 7) Hx/o TB - On Rifampin and Isonaizid treatment currently and has been for several months - Quant gold pos 8) Elevated BNP - ECHO shows mild TR and mild pericardial effusion. He does have a pos fluid balance 2/2 hypoalbuminemia 9) Vitamin D deficiency - Ca level corrects to value WNL. - Supplementing Vitamid D level daily 10) Hyperphosphatemia - [place] 2/2 renal function. Continue to monitor DVT ppx - Lovenox DISPO: likely discharge this afternoon pending nephro recs <Ivan Wong - Last Filed: 03/09/18 08:38> Attending Addendum - Attending Addendum Date/Time: 03/09/18 8814 I personally evaluated the patient and discussed the management with Dr. Wong on 03/09/18. I agree with the History, Examination, Assessment and Plan documented above with any addition or exceptions noted below. Patient responding very well to diuresis, edema almost resolved. Feeling much improved. Per Dr. Polanco, likely nephrotic syndrome secondary to diabetic nephropathy. Will discharge on PO diuretics. <Allison Arroyo - Last Filed: 03/09/18 10:43>
[2018-03-09] MEDS: Rifampin 300 MG CAP PO SCH (08:52)
[2018-03-09] MEDS: Cholecalciferol (Vitamin D3) 400 UNITS TAB PO SCH (08:53)
[2018-03-09] MEDS: Calcium Carbonate 500 MG ChewTAB PO SCH ×2 (08:54→09:02)
[2018-03-09] MEDS: Amlodipine 10 MG TAB PO SCH (08:55)
[2018-03-09] MEDS: Metoclopramide 10 MG/10 ML UDCUP PO SCH ×3 (08:55→15:59)
[2018-03-09] MEDS: Metoprolol Tartrate 100 MG TAB PO SCH (08:55)
[2018-03-09] MEDS: hydrALAZINE 25 MG TAB PO SCH ×2 (08:56→15:59)
[2018-03-09] MEDS: Isoniazid 100 MG TAB PO SCH (08:56)
[2018-03-09] MEDS: Venlafaxine HCl 37.5 MG TAB PO SCH (08:56)
[2018-03-09] MEDS: Enoxaparin Sodium 30 MG/0.3 ML SYRINGE SC SCH (08:57)
[2018-03-09] MEDS: NPH, Human Insulin Isophane 300 UNIT/3 ML VIAL SC SCH (08:58)
[2018-03-09] MEDS: Atorvastatin Calcium 40 MG TAB PO SCH (08:58)
[2018-03-09] MEDS ORDERED: Docusate 100 MG CAP PO SCH (09:00)
[2018-03-09] MEDS: Lisinopril 20 MG TAB PO SCH (09:01)
[2018-03-09] MEDS: hydrALAZINE 20 MG/ML VIAL SLOW IVP PRN (12:44)
[2018-03-09 16:16] LABS: HIV-1 Quantitative, RNA PCR <20 copies/mL (.)
[2018-03-09] MEDS: Ondansetron ODT 4 MG TAB PO PRN (17:20)
[2018-03-09 18:20] VITALS: BP 154/74; TEMP 97.4
--- NOTE | 2018-03-09 19:42 | PRG ---
DATE OF SERVICE: 03/09/2018 SUBJECTIVE: The patient was seen and examined with no new complaint. Has responded to diuretics. S eems to be feeling better, but still very hypertensive, noted with the following vital signs. OBJECTIVE: VITAL SIGNS: Afebrile with temperature 98.3, pulse 68, respiratory of 18, O2 sat of 95% with a blood pressure 143/72 to 201/95. HEENT: Unremarkable. CARDIOVASCULAR: First and second heart sounds were heard. RESPIRATORY: Clear to auscultation. DIGESTIVE: Revealed a benign abdomen with positive bowel sounds. EXTREMITIES: No peripheral edema. SKIN: No new gross rash. LYMPHATICS: No peripheral lymphadenopathy. LABORATORY INVESTIGATIONS: White count of 3.2, hemoglobin 9.6. Chemistry showed a creatinine down t o 3.12, BUN of 31. IMPRESSION: 1. Advanced chronic kidney disease stage 4 in the context of diabetic nephropathy. 2. Diabetic nephropathy with nephrotic range proteinuria of up to 10 grams. 3. Nephrotic syndrome in the context diabetic nephropathy. PLAN: 1. The patient is on diuretics. We will convert the parenteral diuresis to oral furosemide. 2. Renally dose all medications. 3. Avoid potentially nephrotoxic agents. 4. Erythropoiesis stimulating agents to address the problem of anemia of chronic kidney disease. 5. Further management will be dependent on the clinical course. From the renal standpoint, the jhony ent is possibly to be discharged with a very close outpatient Nephrology followup status post dischar ge. Given the significant proteinuria, there is a very high likelihood for the rapid decline in the renal function of this patient.
--- NOTE | 2018-03-10 22:09 | DIS-2 ---
DATE OF ADMISSION: 03/04/2018 DATE OF DISCHARGE: 03/09/2018 RESIDENT: Ivan Wong DO ADMITTING ATTENDING: Fei Desai MD DISCHARGE ATTENDING: Allison Arroyo DO CONSULTATIONS: Dr. Polanco, Nephrology. PROCEDURES: NA. PRIMARY DIAGNOSES: Hypoglycemia and hypertensive urgency. SECONDARY DIAGNOSES: 1. Nephrotic syndrome. 2. Diabetes mellitus. 3. Chronic kidney disease. 4. Tuberculosis. 5. Gastroparesis. 6. Vitamin D deficiency. DISCHARGE MEDICATIONS: Rifampin 600 mg p.o. daily, lisinopril 40 mg p.o. daily , omeprazole 20 mg p.o. daily, amitriptyline 25 mg p.o. at bedtime, promethazine 25 mg p.o. t.i.d., insulin NPH 20 units subcu q.p.m., insulin NPH 10 units subcu q.a.m., amlodipine 10 mg p.o. daily, metoprolol 100 mg p.o. b.i.d., atorvastatin 40 mg p.o. daily, venlafaxine 75 mg p.o. daily, phenytoin 100 mg p.o. at bedtime, isoniazid 300 mg p.o. daily, hydralazine 50 mg t.i.d., cholecalciferol 400 units p.o. b.i.d., Reglan 10 mg p.o. a.c. HISTORY OF PRESENT ILLNESS AND HOSPITAL COURSE: Mr. Mariel Shaw was transferred from residential to our hospital because [facility] was full. He initially had reportedly had hypoglycemic episode at the residential of 45. That problem was managed in the hospital and resolved by decreasing his insulin dose and continuing consistent carbohydrates. His hypertension resolved throughout his hospital course and vitals remained within normal limits. Upon admission, he was found to have pitting edema and fluid overload. This was investigated as well as Nephrology consulted and he was found to have nephrotic syndrome, likely secondary to renal causes from his diabetes. He was started on Lasix in the hospital and his fluid status did improve throughout his hospitalization. He was also treated for TB infection. 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 The patient was discharged again with Lasix and will need to have Nephrology followup in 1 month. DISCHARGE INSTRUCTIONS: 1. Location: Return to residential. 2. Diet: ADA diet. 3. Activity: As tolerated. 4. Followup: Follow up with Nephrology and primary care provider. JHONATHAN
== END 2018-03-09 18:31 | DRG 699 ==
LOC: ERS 09:32 → 2NO 12:18 → T4-B 15:31
PROVIDERS: ADMIT Family Medicine; ATTEND Family Medicine
DX: E11.21 Type 2 diabetes mellitus with diabetic nephropathy (principal); E46 Unspecified protein-calorie malnutrition; I12.9 Hypertensive chronic kidney disease with stage 1 through stage 4 chronic kidney disease, or unspecified chronic kidney disease; N18.4 Chronic kidney disease, stage 4 (severe); N17.9 Acute kidney failure, unspecified; E11.649 Type 2 diabetes mellitus with hypoglycemia without coma; I16.0 Hypertensive urgency; E11.43 Type 2 diabetes mellitus with diabetic autonomic (poly)neuropathy; K31.84 Gastroparesis; E11.22 Type 2 diabetes mellitus with diabetic chronic kidney disease; D63.1 Anemia in chronic kidney disease; E55.9 Vitamin D deficiency, unspecified; M19.90 Unspecified osteoarthritis, unspecified site; E83.39 Other disorders of phosphorus metabolism; E83.51 Hypocalcemia; E11.319 Type 2 diabetes mellitus with unspecified diabetic retinopathy without macular edema; K21.9 Gastro-esophageal reflux disease without esophagitis; Z68.32 Body mass index [BMI] 32.0-32.9, adult
CPT/HCPCS: 36415; 36416; 71046; 76700; 80048; 80053; 82274; 82306; 82570; 82607; 82728; 82747; 82977; 83036; 83540; 83550; 83735; 83970; 84100; 84134; 84156; 84300; 84443; 84484; 85014; 85025; 86480; 86704; 86706; 86803; 87340; 87517; 87521; 87536; 93306; 99285; A4216; J0360; J1650; J1815; J1940; Q0162; Q4081

== ENCOUNTER 2018-06-03 16:19 | Inpatient (IN) | payer OTHER ==
[2018-06-03] MEDS ORDERED: levETIRAcetam In NaCl (Iso-Os) 1,000 MG in Premix Bag 1 BAG IVPB SCH (19:00)
[2018-06-03] MEDS ORDERED: Bacitracin Zinc 1 Packet ONE (19:05)
[2018-06-03] MEDS ORDERED: Metoprolol Tartrate 100 MG TAB PO SCH (20:45)
[2018-06-03] MEDS ORDERED: Atorvastatin Calcium 40 MG TAB PO SCH (20:45)
[2018-06-03] MEDS ORDERED: hydrALAZINE 25 MG TAB PO SCH (20:45)
[2018-06-03] MEDS ORDERED: Amlodipine 10 MG TAB PO SCH (20:45)
[2018-06-03] MEDS ORDERED: Dextrose 50% Abboject 50 ML SYRINGE SLOW IVP PRN ×2 (23:16→23:44)
[2018-06-03] MEDS ORDERED: Dextrose 5% in Water 1,000 ML IV PRN ×2 (23:16→23:44)
[2018-06-03] MEDS ORDERED: Acetaminophen 500 MG TAB PO PRN (23:16)
[2018-06-03] MEDS ORDERED: Insulin Regular 300 UNITS/3 ML VIAL SC PRN (23:44)
[2018-06-03] MEDS: levETIRAcetam 500 MG TAB PO SCH (23:47)
[2018-06-04] MEDS ORDERED: hydrALAZINE 20 MG/ML VIAL SLOW IVP SCH (02:15)
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
[2018-06-04] MEDS ORDERED: hydrALAZINE 20 MG/ML VIAL SLOW IVP PRN (02:30)
[2018-06-04 02:44] VITALS: BMI 32.5
[2018-06-04 03:50] LABS: Anion Gap 11 mmol/L (10-20); BUN (Urea Nitrogen) 46 mg/dL (8.4-25.7); Calc. Creatinine Clearance 24 mL/min (70-130); Calcium 7.9 mg/dL (7.8-10.44); Carbon Dioxide 19 mmol/L (23-31); Chloride 108 mmol/L (98-107); Estimated GFR-MDRD 16; Glucose 87 mg/dL (80-115); Magnesium 1.8 mg/dL (1.6-2.6); Phosphorus 4.9 mg/dL (2.3-4.7); Potassium 4.1 mmol/L (3.5-5.1); Sodium 134 mmol/L (136-145)
[2018-06-04 06:43] VITALS: TEMP 97.5
--- NOTE | 2018-06-04 07:01 | PRG ---
DATE OF SERVICE: 06/04/2018 I personally interviewed and examined the patient and agree with documentation of Macarena Menchaca PA-C dated 06/03/2018. Briefly Mariel Shaw was taken to [facility] Emergency Department yesterday for a fall that happened in his skilled nursing cell the day before. He was found to have a possible left inferi or orbital fracture and a right superior temporal subdural hematoma without much mass effect or midli ne shift. He was transferred for further management of his intracerebral hemorrhage. Overnight, Mr. Shaw been watched carefully in the ICU and he has not deteriorated neurologically. He is awake. He speaks Sudanese. He does his best to follow commands in Maori. We talked a little bit about mov ing his toes and he says that they are tingling in his sleep from his peripheral neuropathy. His vis ion has also had some preexisting deficits likely from diabetes, but he has no other new cranial neur opathy or motor or sensory deficits in either extremity. Follow up CT scan shows a very small subdural hematoma on the right hemisphere adjacent to the tempor al lobe without much mass effect at all. On our CT scan, I cannot see the orbital fracture, specific ally. If intracranial hemorrhage was the only issue, the patient could be discharged. We will move him to the floor and have his arm pain evaluated by the Trauma Service and his orbital fracture, evaluated b y the facial fracture team. It may not exist, but we will defer to their management. Once those two issues are settled he can be returned to his facility.
--- NOTE | 2018-06-04 07:52 | HP ---
ADMITTING PHYSICIAN: Dr. Elisabeth Marti. CONSULTING PHYSICIAN: Dr. Bravo, neurosurgery. HISTORY OF PRESENT ILLNESS: Mr. Shaw is a 67-year-old male who is an inmate at the [facility]. Apparently, he had multiple falls today while at his facility. He was taken to the outside hospital in [place], [place], where he was diagnosed with subdural hematoma and subse quently transferred to [facility] for higher level of definitive care. He was e valuated in the emergency department. Dr. Bravo was consulted by the emergency department physic laurie. Trauma Services was consulted for admission and management. PAST MEDICAL HISTORY: 1. Osteoarthritis. 2. 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 3. Diabetes mellitus, type 2. 4. Venous insufficiency, chronic peripheral. 5. Chronic kidney disease without dialysis. 6. Essential hypertension. 7. Hyperlipidemia. 8. Diabetic peripheral neuropathy. 9. Hypothyroidism. CURRENT MEDICATIONS: 1. Amlodipine 10 mg q.p.m. 2. Atorvastatin 40 mg at bedtime. 3. Isoniazid 300 mg every day. 4. Lisinopril 5 mg daily. 5. Metoprolol 100 mg b.i.d. 6. Novolin N 115 units q.a.m. 7. Novolin N 7 units q.p.m. 8. Novolin R sliding scale. 9. Omeprazole 20 mg daily. 10. Pyridoxine 50 mg daily. 11. Rifampin 300 mg daily. 12. Venlafaxine ER 75 mg daily. 13. Hydralazine 50 mg b.i.d. LABORATORY RESULTS: CBC: WBC 4.3, RBC 2.77, hemoglobin 8.4, hematocrit 23.9, platelets 229. Chemis try: Sodium 132, potassium 3.9, chloride 105, carbon dioxide 22, glucose 136, BUN 47, creatinine 3.9 , calcium 7.4. Bilirubin total 0.5, alkaline phosphatase 89, ALT 16, AST 32. CK-MB 15 and 124. Tro ponin 0.03. Coags: PTT 11.0, INR 1.0. PAST SURGICAL HISTORY: Please note cholecystectomy. SOCIAL HISTORY: Please note smoking none, alcohol none, drugs none. REVIEW OF SYSTEMS: Constitutional: Patient denies chills, fever, recent weight loss, or generalized malaise. HEENT: Patient reports near blindness, can see light and movement close to his eyes. Den ies sore throat or neck pain. Cardiovascular: Denies chest pain, palpitations or syncope. Respirat ory: Denies shortness of breath, cough, or wheezing. Gastrointestinal: Denies abdominal pain, naus ea, vomiting, diarrhea, or constipation. Genitourinary: Denies dysuria, hematuria. Musculoskeletal : Reports recent falls. Reports right knee weakness and leg weakness. Skin: Denies rashes or skin changes. Neurologic: Denies headache, denies seizures, denies focal deficit. PHYSICAL EXAMINATION: VITAL SIGNS: Blood pressure 165/98, pulse 60, respirations 18, temperature 98.0, O2 sat 95% on room air. GENERAL: Elderly male lying on bed. Patient is incarcerated and currently confined with shackles ar ound wrist, waist, and leg. HEENT: Atraumatic, normocephalic. NECK: Trachea midline. No posterior neck tenderness. RESPIRATORY: Bilateral breath sounds clear. Chest movement symmetrical. CARDIOVASCULAR: Regular rate and rhythm. Heart sounds normal. ABDOMEN: Soft, nontender, nondistended. Bowel sounds normal. BACK: Normal inspection and palpation. No tenderness. EXTREMITIES: Moves all extremities, 2+ pulses all extremities. Cap refill brisk. NEUROLOGICAL: GCS 15. Awake, alert, and oriented x3. Pupils equal, round, reactive to light. SKIN: Warm, dry, normal in color. ASSESSMENT AND PLAN: 1. A 67-year-old male with multiple recent falls. 2. Small subdural hematoma. 3. History of peripheral neuropathy. 4. History of diabetes. 5. History of hypertension. 6. History of tuberculosis risk currently treated. PLAN: 1. Admit to [facility]. 2. Serial neurologic exams. 3. Repeat CT scan in a.m. 4. Neurosurgical consultation. Discussed with Luis Carlos Menchaca. 5. Resume home medications as appropriate. 6. Clear liquid diet. Patient was reviewed with Dr. Marti who agrees with plan.
--- NOTE | 2018-06-04 08:51 | CT ---
PRELIMINARY REPORT/[facility]/EMERGENTY AFTER-HOURS PROCEDURE CT Head Without Intravenous Contrast CLINICAL HISTORY: 67 years old, male; Condition or disease; Patient HX: Eval sdh; Additional info: *pt scanned at [facility] facility TECHNIQUE: Axial computed tomography images of the head/brain without intravenous contrast. COMPARISON: No relevant prior studies available. FINDINGS: Small acute/recent appearing subdural hematoma in the right temporal region. Maximum thickness about 6 mm. Maximum AP/longitudinal dimension about 35 mm. Mild focal mass effect on the right temporal lobe. Approximately 3 mm of [id number] midline shift. Eventual comparison with any available prior exams will be helpful. No other definite acute intracranial hemorrhage. Ventricle size is normal for age. There is relatively symmetrical decreased attenuation in the periventricular white matter, likely fro m microvascular disease. Suspect a small old infarct in right cerebellar hemisphere. No definite acute infarct by CT. Nonspecific calcifications in the right basal ganglia region. In the anterior left middle cranial fossa, there is an area of CSF density measuring 30 x 14 mm. I suspect that this is an arachnoid cyst. This is obviously a chronic appearance, and likely an incidental finding. No definite acute skull fracture. Old fracture of the left orbital floor. Included paranasal sinuses are essentially clear. IMPRESSION: Small acute/recent appearing subdural hematoma in the right temporal region. This apparently is a kno wn finding. Mild focal mass effect and [id number] midline shift, details above. 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 Other findings discussed above. Eventual comparison with any available prior exams will be helpful. Thank you for allowing us to participate in the care of your patient. Dictated and Authenticated by: Giovany Truong MD 06/04/2018 5:47 AM Central Time ([place] & [place]) FINAL REPORT HEAD CT WITHOUT CONTRAST: Date: 06/04/18 COMPARISON: None. HISTORY: Evaluate subdural hematoma. FINDINGS: Findings are in agreement with the preliminary report by [facility]. There is mucosal thickening and wall t hickening of left maxillary sinus suggesting chronic sinusitis. There is an acute right-sided subdural hematoma lateral to the right temporal lobe measuring up to 7- 8 mm in transverse dimension. There is no significant mass effect. There is mild right to left midlin e shift measuring in the 2-3 mm range. Nonspecific calcification of the right basal ganglia noted. Pe riventricular and deep white matter hypodensities suggest small vessel disease. No displaced calvaria l fracture. IMPRESSION: Right-sided subdural hematoma as described above. POS: DEVONTEH
[2018-06-04] MEDS ORDERED: Isoniazid 100 MG TAB PO SCH (09:00)
[2018-06-04] MEDS ORDERED: pyridOXINE 50 MG (B6) TAB PO SCH (09:00)
[2018-06-04] MEDS ORDERED: Famotidine 20 MG TAB PO SCH ×2 (09:00)
[2018-06-04] MEDS ORDERED: Rifampin 300 MG CAP PO SCH (09:00)
[2018-06-04] MEDS ORDERED: Lisinopril 5 MG TAB PO SCH (09:00)
[2018-06-04] MEDS ORDERED: Metoprolol Tartrate 100 MG TAB PO SCH (09:00)
[2018-06-04] MEDS ORDERED: Venlafaxine HCl 37.5 MG TAB PO SCH (09:00)
[2018-06-04] MEDS ORDERED: hydrALAZINE 25 MG TAB PO SCH (09:00)
[2018-06-04] MEDS: levETIRAcetam 500 MG TAB PO SCH (10:06)
[2018-06-04] MEDS ORDERED: Amlodipine 10 MG TAB PO SCH (21:00)
[2018-06-04] MEDS ORDERED: Atorvastatin Calcium 40 MG TAB PO SCH (21:00)
== END 2018-06-04 12:35 | DRG 87 ==
LOC: ERS 16:19 → EEVIPCON 16:19 → UNDOADMIN 21:05 → ERHOLD 21:05 → CCU 23:02
PROVIDERS: ADMIT Neurological Surgery; ATTEND Neurological Surgery
DX: S06.5X0A Traumatic subdural hemorrhage without loss of consciousness, initial encounter (principal); M19.90 Unspecified osteoarthritis, unspecified site; K13.79 Other lesions of oral mucosa; E11.22 Type 2 diabetes mellitus with diabetic chronic kidney disease; I12.9 Hypertensive chronic kidney disease with stage 1 through stage 4 chronic kidney disease, or unspecified chronic kidney disease; N18.9 Chronic kidney disease, unspecified; E78.5 Hyperlipidemia, unspecified; E11.42 Type 2 diabetes mellitus with diabetic polyneuropathy; E03.9 Hypothyroidism, unspecified; Z79.4 Long term (current) use of insulin; Z90.49 Acquired absence of other specified parts of digestive tract; W19.XXXA Unspecified fall, initial encounter; Y92.143 Cell of prison as the place of occurrence of the external cause
CPT/HCPCS: 36415; 36416; 70450; 80048; 83735; 84100; 96365; G0390; J0360; J1953